=== PATIENT | female | born 1970 | race Two or more races ===

== ENCOUNTER 2025-04-04 06:17 | Day surgery (SDC) | payer OTHER ==
[2025-03-31 18:09] VITALS: BMI 26.6
[~2025-04-04 06:17] MED LIST: ACETAMINOPHEN 325 MG TABLET (FP) PO PRN; IBUPROFEN 400 MG TABLET (FP) PO PRN
[2025-04-04] MEDS ORDERED: MIDAZOLAM HCL 2 MG/2 ML SINGLE DOSE VIAL ONE (13:39)
[2025-04-04] MEDS ORDERED: PROPOFOL 40 ML ONE (13:40)
[2025-04-04] MEDS ORDERED: LIDOCAINE HCL/PF 2% SDV 5ML VIAL ONE (13:40)
[2025-04-04] MEDS ORDERED: DEXAMETHASONE SOD PHOSPHATE 4 MG/1 ML VIAL ONE (13:41)
[2025-04-04] MEDS ORDERED: GLYCOPYRROLATE 0.2 MG/1 ML VIAL ONE (13:41)
[2025-04-04] MEDS ORDERED: SUCCINYLCHOLINE CHLORIDE 200 MG/10 ML SYRINGE ONE (13:41)
[2025-04-04] MEDS ORDERED: ONDANSETRON 4 MG/2 ML VIAL ONE (13:41)
[2025-04-04] MEDS ORDERED: KETOROLAC TROMETHAMINE 30 MG/1 ML VIAL ONE (13:41)
[2025-04-04] MEDS ORDERED: ONDANSETRON 4 MG/2 ML VIAL IVPUSH PRN (14:53)
[2025-04-04] MEDS: ACETAMINOPHEN 1000 MG/100 ML BAG IVPB ONE (14:58)
[2025-04-04] MEDS: LACTATED RINGERS SOLUTION 1,000 ML IV SCH (14:59)
[2025-04-04 15:29] VITALS: TEMP 97.4
[2025-04-04 17:01] VITALS: BP 154/93; PULSE 71; RESP 18
== END 2025-04-04 17:30 | disposition home or self-care (01) ==
LOC: JASU-SURG 06:17
PROVIDERS: ATTEND Obstetrics & Gynecology
PROC: 0UN98ZZ Release Uterus, Via Natural or Artificial Opening Endoscopic (ICD-10-PCS; principal; 2025-04-04 12:15)
DX: N85.6 Intrauterine synechiae (principal)
CPT/HCPCS: 88305-TC; 94760